=== PATIENT | male | born 1955 ===

== ENCOUNTER → 2023-08-10 | Outpatient (CLI) | payer OTHER ==
[2023-08-10 08:23] LABS: Urine Bacteria None Seen /hpf (None Seen)
[2023-08-10 08:38] LABS: Urine Blood Negative /uL (Negative); Urine Clarity Clear (Clear); Urine Color Light-Yellow (Yellow); Urine Protein, UAD 2+ (Negative); Urine Specific Gravity 1.018 (1.001-1.035); Urine Urobilinogen Normal (Negative); Urine WBC 1 /hpf (0 - 3)
[2023-08-10 09:03] LABS: Creatinine, Urine 118.24 mg/dL (30.0-125.0); Protein, Urine 104.2 mg/dL (0.0-11.9)
[2023-08-10 09:04] LABS: Creatinine, Urine 118.74 mg/dL (30.0-125.0); Urine Protein/Creatinine Ratio 0.88
[2023-08-10 09:08] LABS: Alanine Aminotransferase 30 U/L (7-40); Alkaline Phosphatase 108 U/L (46-116); Calcium 9.4 mg/dL (8.5-10.1); Carbon Dioxide 27 mmol/L (20-30); Chloride 106 mmol/L (98-107); Triglycerides 212 mg/dL (< 150)
[2023-08-10 09:09] LABS: Albumin 4.5 g/dL (3.2-4.8); Anion Gap 7 (5-15); Aspartate Aminotransferase 34 U/L (13-40); BUN/Creatinine Ratio 11.6 (10.0-20.0); Bilirubin, Total 0.3 mg/dL (0.2-1.0); Blood Urea Nitrogen 8 mg/dL (9-23); Cholesterol 204 mg/dL (< 200); Glucose 150 mg/dL (74-106); HDL Cholesterol 44 mg/dL (40-59); LDL Cholesterol 136 mg/dL (< 100); Potassium 3.8 mmol/L (3.5-5.1); Sodium 140 mmol/L (136-145); Total Protein 7.3 g/dL (5.7-8.2)
== END | disposition home or self-care (01) ==
LOC: LAB 08:13
PROVIDERS: ATTEND Internal Medicine
DX: E11.42 Type 2 diabetes mellitus with diabetic polyneuropathy (principal); R82.998 Other abnormal findings in urine
CPT/HCPCS: 36415; 80053; 80061; 81001; 82043; 82570; 83036; 84153; 84156; 87086